=== PATIENT | female | born 1960 | race Caucasian/White ===

== ENCOUNTER 2024-01-14 02:19 | Emergency (ER) | payer OTHER, SELFPAY ==
[2024-01-14 02:27] VITALS: BP 140/79; PULSE 58; RESP 16; TEMP 36.6; O2SAT 98; BMI 25.7
--- NOTE | 2024-01-14 02:36 | ED.GENADULT ---
HPI - General Adult General Chief complaint: Urogenital Problems, Female Stated complaint: poss UTI, blood in urine Time Seen by Provider: 01/14/24 02:36 History of Present Illness HPI narrative: pt states she thinks she has a UTI, started having increased frequency and burning with urination this evening. Also states she had intercourse this am, noticed some blood when she wiped tonight. Denies fever or chills 63-year-old woman presenting to the emergency department with concern of possible urinary tract infection. She started is noted increased lower abdominal pressure beginning this last evening while relaxing on the couch. Has had dysuria and frequency since. Did have intercourse this last morning and has noted some blood upon wiping with urination. No fever. No chills. No back pain. No unusual discharge otherwise. Review of records shows pansensitive E coli collected in urine culture on May 2022. Related Data Previous Rx's Medication Instructions Recorded fluconazole 150 mg tablet 150 mg PO Q3D 2 doses #2 tabs 05/13/22 (Diflucan) Allergies Allergy/AdvReac Type Severity Reaction Status Date / Time nitrofurantoin AdvReac Intermediate Muscle Pain Verified 05/13/22 09:36 [From Macrobid] [facility] Medical History (Updated 01/14/24 @ 03:37 by Jorge Escudero MD) Yeast infection ?B37.9 - Candidiasis, unspecified (ICD-10) Urinary tract infection ?N39.0 - Urinary tract infection, site not specified (ICD-10) Social History Smoking Status: Never smoker Exam Narrative: Exam Narrative: Pleasant. Here with supportive partner. Prefers to stand for comfort. Restless in apparent discomfort. She is breathing easily. Skin is warm and dry. There is no flank pain. Abdomen is soft and little uncomfortable in the suprapubic area. Without peritoneal signs. Lungs appear to be clear. Heart is in regular to near bradycardic rate. Const: Vital Signs, click to edit/add: Vital Signs - 24 hr 01/14/24 02:27 Temperature 97.8 F Pulse Rate [Pulse Oximeter] 58 L Respiratory Rate 16 Blood Pressure [Le ft Upper Arm] 140/79 H Pulse Oximetry 98 Oxygen Delivery Me thod Room Air Documenting provider has reviewed patient's vital signs: yes Course Vital Signs Vital signs: Initial Vital Signs Temperature 97.8 F 01/14/24 02:27 Temperature Source Temporal Artery Scan 01/14/24 02:27 Pulse Rate 58 L 01/14/24 02:27 Pulse Rhythm Regular 01/14/24 02:27 Respiratory Rate 16 01/14/24 02:27 Blood Pressure 140/79 H 01/14/24 02:27 Blood Pressure Mean 99 01/14/24 02:27 Blood Pressure Position Supine 01/14/24 02:27 Pulse Oximetry 98 01/14/24 02:27 Oxygen Delivery Method Room Air 01/14/24 02:27 Vital Signs Temperature 97.8 F 01/14/24 02:27 Pulse Rate 58 L 01/14/24 02:27 Respiratory Rate 16 01/14/24 02:27 Blood Pressure 140/79 H 01/14/24 02:27 Pulse Oximetry 98 01/14/24 02:27 Oxygen Delivery Method Room Air 01/14/24 02:27 Temperature 97.8 F 01/14/24 02:27 Pulse Rate 58 L 01/14/24 02:27 Respiratory Rate 16 01/14/24 02:27 Blood Pressure 140/79 H 01/14/24 02:27 Pulse Oximetry 98 01/14/24 02:27 Oxygen Delivery Method Room Air 01/14/24 02:27 Medical Decision Making MDM Narrative Medical decision making narrative: Cystitis does appear to be most likely answer for her symptoms. Possible ureteral stone. We agreed to wait for further evaluation pending results of urinalysis. Urinalysis indeed does appear to be infected. She is relieved to be receiving antibiotics and phenazopyridine. See patient discharge plan for further discussion. Lab Data Lab results reviewed: Yes I reviewed the patient's lab results Labs: Lab Results 01/14/24 Range/Units 02:35 Urine Color Yellow (Yellow) Urine Appearance Cloudy A (Clear) Urine pH 6.5 (5.0-8.5) Ur Specific [place] 1.010 (1.000-1.030) Urine Protein 2+ A (Negative) Urine Glucose (UA) Negative (Negative) Urine Ketones Negative (Negative) Urine Blood 3+ A (Negative) Urine Nitrite Negative (Negative) Urine Bilirubin Negative (Negative) Urine Urobilinogen 0.2 (0.2-1.0) Ur Leukocyte Esterase 2+ A (Negative) Urine RBC 25-50 A (0-2) Urine WBC 10-25 A (0-5) Ur Squamous Epith Cells Moderate A (None-Few) Urine Bacteria Few A (None) Discharge Plan Discharge Clinical Impression: Dysuria, Cystitis Patient Disposition: Home w/ Parent or Adult Condition: Stable Additional Instructions: Focus on unsugared/unsweetened hydration over the next few days. A urine culture will be pending here and we will call you if change in medication is necessary. Return for marked increase in persistent pain, repeated vomiting, associated fever. Cephalexin and phenazopyridine (contrary to [facility] directions can take 1/2 - 1 tablet per dose) from [facility]. Prescriptions: No Action fluconazole [Diflucan] 150 mg tablet 150 mg PO Q3D Qty: 2 0RF Rx Instructions: Take one tab po once if develop vaginal itch; repeat in 3 days if persists Follow Up/Referrals: Mili Palacio MD [Staff Physician] - Stand Alone Forms: [employer] Info Instructions
[2024-01-14 02:38] LABS: Appearance Urine Cloudy (Clear); Bilirubin Urine Negative (Negative); Blood Urine 3+ (Negative); Color Urine Yellow (Yellow); Glucose Urine Negative (Negative); Ketones Urine Negative (Negative); Leukocyte Esterase Urine 2+ (Negative); Nitrite Urine Negative (Negative); Protein Urine 2+ (Negative); Urobilinogen Urine 0.2 (0.2-1.0); pH Urine 6.5 (5.0-8.5)
[2024-01-14 02:46] LABS: RBC Urine 25-50 (0-2); Squamous Epithelial Cell Urine Moderate (None-Few)
[2024-01-14 02:47] LABS: Bacteria Urine Few
== END 2024-01-14 03:56 | disposition home or self-care (01) ==
PROVIDERS: Emergency Provider Family Medicine; PCP Family Medicine
DX: R30.0 Dysuria (principal); N30.90 Cystitis, unspecified without hematuria
CPT/HCPCS: 81001; 87077; 87086; 87186; 99283; 99284

== ENCOUNTER 2024-01-27 16:29 | Outpatient (CLI) | payer OTHER, SELFPAY | END 2024-01-27 16:30 | disposition home or self-care (01) | LOC: NFLDREF 01-29 11:13 | PROVIDERS: PCP Family Medicine; Referring Provider Family Medicine; Visit Provider Nurse Practitioner | DX: R10.9 Unspecified abdominal pain (principal) | CPT/HCPCS: 87086 ==

== ENCOUNTER 2024-05-04 12:56 | Outpatient (CLI) | payer OTHER, SELFPAY ==
--- OUTSIDE RECORDS SUMMARY | 2024-05-04 12:59 | XMS_ITS | Clinical Summary ---
Author Organization [facility] Address [address] [place] [address] Care Team Providers Care Wafer Production Lead Worker Name Role Phone Needs Pcp, Assignment Primary Care Provider [phone] Source Comments You are receiving this document as you are listed as the primary care provider,follow-up provider, or the patient has been referred to you for consultation.This is in compliance with the Medicare and[facility] E[facility] Incentive Program,which states Providers who transition their patient to another setting of careor provider of care or refers their patient to another provider of care shouldprovide summary care record for each transition of care or referral. [employer] Allergies Active Allergy Reactions Criticality Noted Date Comments Latex 01/09/2011 PN: Converted from LW Latex Sensitivity Flag Medications Medication Sig Dispensed Refills Start Date End Date Status unknown medication Indications: PN: 07/15/2009 Active unknown medication Indications: PN: 12/15/2009 Active cyclobenzaprine (AKA FLEXERIL) 10 MG tablet Take 0.5-1 tablets by mouth 3 times daily as needed. LW Comment:Rx PRIORITY: Pt in Clinic LW Addl Instr:For muscle pain and spasm, will make drowsy. 21 12/15/2009 Active Active Problems No known active problems Social History Tobacco Use Types Packs/Day Years Used Date Smoking Tobacco: Never Sex and Gender Information Value Date Recorded Sex Assigned at Not on file Gender Identity Not on file Sexual Orientation Not on file Last Filed Vital Signs Vital Sign Reading Time Taken Comments Blood Pressure 111/71 12/17/2016 11:51 AM CDT Pulse 56 12/17/2016 11:51 AM CDT Temperature 35.7 ??C (96.3 ??F) 12/17/2016 11:51 AM C DT Respiratory Rate 16 12/17/2016 11:51 AM CDT Oxygen Saturation 97% 08/13/2008 8:32 AM MACHINE OPERATOR HELPER Inhaled Oxygen Concentration - - Weight - - Height - - Body Mass Index - - Plan of Treatment Health Maintenance Due Date Last Done Comments Cervical Cancer Screening Due 1961 Colon Cancer Screening Plan Due 1961 Hep C Screening (Preventive Services) 1961 Mammogram 1961 HIV Screening (Preventive Services) 1977 Adult Preventive Visit 1979 Cholesterol 2006 Zoster/Shingles (1 of 2) 2011 DTaP/Tdap/Td (2 - Tdap) 04/22/2022 04/22/2012 COVID-19 Vaccine (1 - 2022-2 4 season) 2023 Influenza (#1) 2024 HepA Aged Out 04/22/2012 No longer eligi ble based on patient's age to complete this topic HepB Aged Out No longer eligi ble based on patient's age to complete this topic Hib Aged Out No longer eligi ble based on patient's age to complete this topic IPV (Polio) Aged Out No longer eligi ble based on patient's age to complete this topic MCV4 Aged Out No longer eligi ble based on patient's age to complete this topic Pneumococcal Aged Out No longer eligi ble based on patient's age to complete this topic Care Teams Wafer Production Lead Worker Relationship Specialty Start Date End Date Needs Pcp, Bernabe [place] [address] PCP - General 12/17/16
--- OUTSIDE RECORDS SUMMARY | 2024-05-04 12:59 | XMS_ITS | Referral Summary ---
Author Organization [facility] Address [address] [place] [address] Care Team Providers Care Digital Artist Name Role Phone Unavailable Primary Care Provider Unavailabl e Allergies No known active allergies Medications Medication Sig Dispensed Refills Start Date End Date Status azithromycin (ZITHROMAX) 250 MG tabletIndications:Acut e bronchitis, unspecified organism Two tablets first day, then one tablet daily for four days. 6 tablet 0 12/03/2015 Active guaiFENesin-codeine (ROBITUSSIN AC) 100-10 MG/5ML SOLNIndications:Acute bronchitis, unspecified organism Take 5-10 mLs by mouth every 4 hours as needed for cough 120 mL 0 12/03/2015 Active Active Problems Problem Noted Date Diagnosed Date CARDIOVASCULAR SCREENING; LDL GOAL LESS THAN 130 Immunizations Name Administration Dates Next Due TDAP Vaccine (Boostrix) 04/22/2012 Twinrix A/B 04/22/2012 Social History Tobacco Use Types Packs/Day Years Used Date Smoking Tobacco: Never Alcohol Use Standard Drinks/Week Comments No 0 (1 standard drink = 0.6 oz pur e alcohol) Adolescent Education Answer Date Record ed Getting School Help Needed Not on file 07/13 Sex and Gender Information Value Date Recorded Sex Assigned at Not on file Gender Identity Not on file Sexual Orientation Not on file Last Filed Vital Signs Vital Sign Reading Time Taken Comments Blood Pressure 118/62 12/03/2015 11:34 AM VP ANCILLARY Pulse 89 12/03/2015 11:34 AM VP ANCILLARY Temperature 37.1 ??C (98.7 ??F) 12/03/2015 11:[address] Respiratory Rate 14 04/22/2012 2:06 PM CDT Oxygen Saturation 96% 12/03/2015 11:34 AM VP ANCILLARY Inhaled Oxygen Concentration - - Weight 69.9 kg (154 lb) 12/03/2015 11:34 AM VP ANCILLARY Height 162.6 cm (5' 4) 12/03/2015 11:34 AM VP ANCILLARY Body Mass Index 26.43 12/03/2015 11:34 AM VP ANCILLARY Plan of Treatment Not on file
--- OUTSIDE RECORDS SUMMARY | 2024-05-04 12:59 | XMS_ITS | Encounter Summary ---
Author Organization [facility] Address [address] [place] [address] Care Team Providers Care Probation And Parole Officer Name Role Phone Yadiel Rodriguez MD Primary Care Provider [phone] None Primary Care Provider Unavailabl e Jinny Roberto APRN SAP PORTAL CONSULTANT Unavailable Unava ilable Guy Flores MD Unavailable Jinny Roberto APRN SAP PORTAL CONSULTANT Unavailable Unava ilable Reason for Visit * Reason Onset Date Comments Outreach 11/30/2016 PHS att 1 Outreach 03/20/2017 [facility] att 2 Encounter Details Date Type Department Care Team (Late st Contact Info) Description 11/30/[address] [phone] Yadiel Rodriguez MD [address] [place] [address] Outreach ([facility] att 1); Outreach (PHS att 2) Social History Tobacco Use Types Packs/Day Years Used Date Smoking Tobacco: Never Alcohol Use Standard Drinks/Week Comments No 0 (1 standard drink = 0.6 oz pur e alcohol) Sex and Gender Information Value Date Recorded Sex Assigned at Not on file Gender Identity Not on file Sexual Orientation Not on file documented as of this encounter Miscellaneous Notes * Telephone Encounter - Ann Marie Jean - 03/20/2017 10:10 AM CDT 03/20/2017 Call Regarding Preventive Health Screening Mammogram and Physical Attempt 2 Message on voicemail Comments: Outreach Pesticide Chemist JOE * Telephone Encounter - Bryson Whitfield - 11/30/2016 11:40 AM CST 11/30/2016 Call Regarding Preventive Health Screening Mammogram and Physical Attempt 1 Message on voicemail Comments: Outreach Pesticide Chemist rbg MARKER documented in this encounter Plan of Treatment Not on file documented as of this encounter Visit Diagnoses Not on filedocumented in this encounter Care Teams Probation And Parole Officer Relationship Specialty Start Date End Date Yadiel Rodriguez MD [address] [place] [id number] PCP - General 11/21/01 05/20/17 None PCP - General 05/21/17 06/06/17 Jinny Roberto APRN SAP PORTAL CONSULTANT NO INFO AVAILABLE 12/03/2022 PCP - Assigned PCP 08/17/18 12/09/18 Guy Flores MD [address] [place] [address] PCP - Assigned PCP 08/03/18 08/16/18 Jinny Roberto APRN SAP PORTAL CONSULTANT NO INFO AVAILABLE 12/03/2022 Assigned PCP 08/17/18 12/06/18 documented as of this encounter
--- OUTSIDE RECORDS SUMMARY | 2024-05-04 12:59 | XMS_ITS | Clinical Summary ---
Author Organization [facility] Address [address] [place] [address] Care Team Providers Care Oracle Ascp Consultant Name Role Phone Unavailable Primary Care Provider [...] TDAP Vaccine (Boostrix) 04/22/2012 Twinrix A/B 04/22/2012 Family History Medical History Relation Comments Heart Failure Father Hypertension Father Prostate Cancer Father Blood Disease Maternal Grandfather Anemia Breast Cancer Maternal Grandmother Cancer Paternal Grandfather lung Relation Status Comments Father Maternal Grandfather Maternal Grandmother Mother Alive Paternal Grandfather Social History Tobacco Use Types Packs/Day Years [...] Comments Blood Pressure 118/62 12/03/2015 11:34 AM WOODEN BOX MAKER Pulse 89 12/03/2015 11:34 AM WOODEN BOX MAKER Temperature 37.1 ??C (98.7 ??F) 12/03/2015 11:[address] Respiratory Rate 14 04/22/2012 2:06 PM CDT Oxygen Saturation 96% 12/03/2015 11:34 AM WOODEN BOX MAKER Inhaled Oxygen Concentration - - Weight 69.9 kg (154 lb) 12/03/2015 11:34 AM WOODEN BOX MAKER Height 162.6 cm (5' 4) 12/03/2015 11:34 AM WOODEN BOX MAKER Body Mass Index 26.43 12/03/2015 11:34 AM WOODEN BOX MAKER Plan of Treatment Not on file
--- NOTE | 2024-05-04 13:00 | CRLHL7_ITS ---
For Patients: As a result of the Century Cures Act, medical imaging exams and procedure reports are released immediately into your electronic medical record. You may view this report before your referring provider. If you have questions, please contact your health care provider. BILATERAL SCREENING MAMMOGRAM WITH COMPUTER-AIDED DETECTION AND TOMOSYNTHESIS TECHNIQUE: CC and MLO views were obtained. These mammographic images have been obtained using full-field digital technique. These mammographic images were interpreted with the benefit of computer-aided detection. Breast Tomosynthesis was used in this interpretation. COMPARISON FILM: 04/12/21, 09/29/19, 05/21/17. FINDINGS: The breasts are heterogeneously dense, which may obscure small masses IMPRESSION: There is no radiographic evidence for malignancy. ASSESSMENT: BI-RADS Category 1: Negative RECOMMENDATION: Routine screening mammogram in 1 year. A lay language report of this examination will be provided to the patient. Jorge Amor M.D. Diagnostic Radiologist [email or web address] [email or web address]/[email or web address] Transcribed: 2:11 p.gale rodriguez/Dictated by: Jorge Amor MD @ 05/05/2024 9:53:00 AM (Electronically Signed)
--- OUTSIDE RECORDS SUMMARY | 2024-05-04 13:00 | XMS_ITS | Clinical Summary ---
Author Organization [facility] Address [place], [place] [address] Care Team Providers Care Muffler Mechanic Name Role Phone Pcp, No Primary Care Provider Unavailabl e Allergies No known active allergies Medications No known medications Active Problems No known active problems Family History Medical History Relation Name Comments Cancer Father Good Health Mother Relation Name Status Comments Father Mother Alive Social History Tobacco Use Types Packs/Day Years Used Date Smoking Tobacco: Never Smokeless Tobacco: Never Alcohol Use Standard Drinks/Week Comments No 0 (1 standard drink = 0.6 oz pur e alcohol) Social Connections Answer Date Recorded Frequency of Communication with Friends and Fami ly Not on file 10/11/2021 Financial Resource Strain Answer Date R ecorded Difficulty of Paying Living Expenses Not on file 10/11/2021 Difficulty of Paying Living Expenses Not on file 10/11/2021 Sex and Gender Information Value Date Recorded Sex Assigned at Not on file Gender Identity Not on file Sexual Orientation Not on file Obstetrics History Last Filed Vital Signs Vital Sign Reading Time Taken Comments Blood Pressure 106/68 10/11/2021 7:44 AM BROADCAST CHIEF ENGINEER Pulse 67 10/11/2021 7:44 AM BROADCAST CHIEF ENGINEER Temperature 36.8 ??C (98.3 ??F) 10/11/2021 7:44 AM CS T Respiratory Rate 16 04/10/2016 12:05 PM CDT Oxygen Saturation 99% 10/11/2021 7:44 AM BROADCAST CHIEF ENGINEER Inhaled Oxygen Concentration - - Weight 73.5 kg (162 lb) 10/11/2021 7:44 AM BROADCAST CHIEF ENGINEER Height 163.8 cm (5' 4.5) 10/11/2021 7:44 AM BROADCAST CHIEF ENGINEER Body Mass Index 27.38 10/11/2021 7:44 AM BROADCAST CHIEF ENGINEER Plan of Treatment Health Maintenance Due Date Last Done Comments Tdap 1972 Depression screening for age 12+ 1973 HIV for age 15-65 1976 Hepatitis C screening for ag e 18-79 1979 Tetanus booster 1981 Pap test for age 21-65 1982 Colonoscopy through age 75 2006 Lipids for age 45-75 2006 Mammogram for age 45-75 2006 Zoster (shingles) series for age 50+ (1 of 2) 2011 BMI (ht and wt on same day) for age 18+ 10/11/2022 10/11/2021, 04/10/2016 COVID-19 vaccine series (2022- season) 2023 Influenza for age 50-64 06/07/2024 Pneumococcal series for age 6-64 Aged Out No longer eligible b ased on patient's age to complete this topic Care Teams Muffler Mechanic Relationship Specialty Start Date End Date Pcp, No . PCP - General 06/12/11
== END 2024-05-04 12:57 | disposition home or self-care (01) ==
LOC: MAMMO 12:57
PROVIDERS: PCP Family Medicine; Visit Provider Family Medicine
DX: Z12.31 Encounter for screening mammogram for malignant neoplasm of breast (principal); R92.2 Inconclusive mammogram
CPT/HCPCS: 77063; 77067

== ENCOUNTER 2024-09-02 14:54 | Outpatient (CLI) | payer OTHER, SELFPAY ==
--- OUTSIDE RECORDS SUMMARY | 2024-09-04 12:50 | XMS_ITS | Clinical Summary ---
Author Organization [facility] Address [address] [place] [address] Care Team Providers Care Towel Stretcher Name Role Phone Needs Pcp, Assignment Primary Care Provider [phone] Source Comments You are receiving this document as you are listed as the primary care provider,follow-up provider, or the patient has been referred to you for consultation.This is in compliance with the Medicare and[facility] E[facility] Incentive Program,which states Providers who transition their patient to another setting of careor provider of care or refers their patient to another provider of care shouldprovide summary care record for each transition of care or referral. [employer] Allergies Active Allergy Reactions Criticality Noted Date [...] 56 12/17/2016 11:51 AM CDT Temperature 35.7 C (96.3 F) 12/17/2016 11:51 AM CDT Respiratory Rate 16 12/17/2016 11:51 AM CDT Oxygen Saturation 97% 08/13/2008 8:32 AM CABBAGE SALTER Inhaled Oxygen Concentration - - Weight - [...] (2 - Tdap) 04/22/2022 04/22/2012 COVID-19 Vaccine ( - 2023-2 5 season) 2024 Influenza (#1) 2024 RSV (1 - 1-dose 75+ series) 2036 HepA Aged Out 04/22/2012 No longer eligi ble based on patient's age to complete this topic HepB Aged Out No longer eligi ble based on patient's age to complete this topic Hib Aged Out No longer eligi ble based on patient's age to complete this topic IPV (Polio) Aged Out No longer eligi ble based on patient's age to complete this topic Infant RSV Aged Out No longer eligi ble based on patient's age to complete this topic MCV4 Aged Out No longer eligi ble based on patient's age to complete this topic Pneumococcal Aged Out No longer eligi ble based on patient's age to complete this topic Care Teams Towel Stretcher Relationship Specialty Start Date End Date Needs Pcp, [place], [place] [id number] PCP - General 12/17/16
--- OUTSIDE RECORDS SUMMARY | 2024-09-04 12:50 | XMS_ITS | Referral Summary ---
Author Organization [facility] Address [address] [place] [address] Care Team Providers Care Revit Drafter Name Role Phone Unavailable Primary Care Provider Unavailabl e Allergies No known active allergies Medications azithromycin (ZITHROMAX) 250 MG tabletIndication s:Acute bronchitis, unspecified organism Two tablets first day, then one tablet daily for four days. 6 tablet 0 12/03/2015 Active guaiFENesin-code ine (ROBITUSSIN AC) 100-10 MG/5ML SOLNIndications: Acute bronchitis, unspecified organism Take 5-10 mLs by [...] School Help Needed Not on file 07/13 Comments No Sex and Gender Information Value Date Recorded Sex Assigned at Not on file Legal Sex Female 3:08 AM CONGRESSIONAL ASSISTANT Gender Identity Not on file Sexual Orientation Not on file Last Filed Vital Signs Vital Sign Reading Time Taken Comments Blood Pressure 118/62 12/03/2015 11:34 AM CONGRESSIONAL ASSISTANT Pulse 89 12/03/2015 11:34 AM CONGRESSIONAL ASSISTANT Temperature 37.1 C (98.7 F) 12/03/2015 11:34 AM CONGRESSIONAL ASSISTANT Respiratory Rate 14 04/22/2012 2:06 PM CDT Oxygen Saturation 96% 12/03/2015 11:34 AM CONGRESSIONAL ASSISTANT Inhaled Oxygen Concentration - - Weight 69.9 kg (154 lb) 12/03/2015 11:34 AM CONGRESSIONAL ASSISTANT Height 162.6 cm (5' 4) 12/03/2015 11:34 AM CONGRESSIONAL ASSISTANT Body Mass Index 26.43 12/03/2015 11:34 AM CONGRESSIONAL ASSISTANT Plan of Treatment Not on file
--- OUTSIDE RECORDS SUMMARY | 2024-09-04 12:50 | XMS_ITS | Clinical Summary ---
Author Organization [facility] Address [address] [place] [address] Care Team Providers Care Active Directory Specialist Name Role Phone Unavailable Primary Care Provider [...] on file Legal Sex Female 3:08 AM JUNIOR HIGH SCHOOL PRINCIPAL Gender Identity Not on file Sexual Orientation Not on file Last Filed Vital Signs Vital Sign Reading Time Taken Comments Blood Pressure 118/62 12/03/2015 11:34 AM JUNIOR HIGH SCHOOL PRINCIPAL Pulse 89 12/03/2015 11:34 AM JUNIOR HIGH SCHOOL PRINCIPAL Temperature 37.1 C (98.7 F) 12/03/2015 11:34 AM JUNIOR HIGH SCHOOL PRINCIPAL Respiratory Rate 14 04/22/2012 2:06 PM CDT Oxygen Saturation 96% 12/03/2015 11:34 AM JUNIOR HIGH SCHOOL PRINCIPAL Inhaled Oxygen Concentration - - Weight 69.9 kg (154 lb) 12/03/2015 11:34 AM JUNIOR HIGH SCHOOL PRINCIPAL Height 162.6 cm (5' 4) 12/03/2015 11:34 AM JUNIOR HIGH SCHOOL PRINCIPAL Body Mass Index 26.43 12/03/2015 11:34 AM JUNIOR HIGH SCHOOL PRINCIPAL Plan of Treatment Not on file
--- OUTSIDE RECORDS SUMMARY | 2024-09-04 12:50 | XMS_ITS | Encounter Summary ---
Author Organization [facility] Address [address] [facility] [place] [address] Care Team Providers Care Rn Mobile Name Role Phone Yadiel Rodriguez MD Primary Care Provider [phone] None Primary Care Provider Unavailabl e Jinny Roberto APRN DNA ANALYST Unavailable Unava ilable Guy Flores MD Unavailable Jinny Roberto APRN DNA ANALYST Unavailable Unava ilable Reason for Visit * Reason Onset Date Comments Outreach 11/30/2016 [facility] att 1 Outreach 03/20/2017 [facility] att 2 Encounter Details Date Type Department Care Team (Late st Contact Info) Description 11/30/[address] [phone] Yadiel Rodriguez MD [address] [place] [address] Outreach ([facility] att 1); Outreach ([facility] att 2) Social History Tobacco Use Types Packs/Day Years Used Date Smoking Tobacco: Never Alcohol Use Standard Drinks/Week Comments No 0 (1 standard drink = 0.6 oz pur e alcohol) Comments No Sex and Gender Information Value Date Recorded Sex Assigned at Not on file Legal Sex Female 3:08 AM CAREGIVERS NON MEDICAL Gender Identity Not on file Sexual Orientation Not on file documented as of this encounter Miscellaneous Notes * Telephone Encounter - Ann Marie Jean - 03/20/2017 10:10 AM CDT 03/20/2017 Call Regarding Preventive Health Screening Mammogram and Physical Attempt 2 Message on voicemail Comments: Outreach Blood Bank Order Control Clerk JOE * Telephone Encounter - Nahid Bryson - 11/30/2016 11:40 AM CST 11/30/2016 Call Regarding Preventive Health Screening Mammogram and Physical Attempt 1 Message on voicemail Comments: Outreach Blood Bank Order Control Clerk rbg GIVERS NON MEDICAL documented in this encounter Plan of Treatment Not on file documented as of this encounter Visit Diagnoses Not on filedocumented in this encounter Care Teams Rn Mobile Relationship Specialty Start Date End Date Yadiel Rodriguez MD [address] [place] [address] PCP - General 11/21/01 05/20/17 None PCP - General 05/21/17 06/06/17 Jinny Roberto APRN DNA ANALYST NO INFO AVAILABLE 12/03/2022 PCP - Assigned PCP 08/17/18 12/09/18 Guy Flores MD [address] [place] [address] PCP - Assigned PCP 08/03/18 08/16/18 Jinny Roberto APRN DNA ANALYST NO INFO AVAILABLE 12/03/2022 Assigned PCP 08/17/18 12/06/18 documented as of this encounter
--- OUTSIDE RECORDS SUMMARY | 2024-09-04 12:50 | XMS_ITS | Clinical Summary ---
Author Organization [facility] Address [place], [place] [address] Care Team Providers Care X Ray Developer Name Role Phone Pcp, No Primary Care [...] Comments Blood Pressure 106/68 10/11/2021 7:44 AM SURGICAL TECHNOLOGY INSTRUCTOR Pulse 67 10/11/2021 7:44 AM SURGICAL TECHNOLOGY INSTRUCTOR Temperature 36.8 C (98.3 F) 10/11/2021 7:44 AM SURGICAL TECHNOLOGY INSTRUCTOR Respiratory Rate 16 04/10/2016 12:05 PM CDT Oxygen Saturation 99% 10/11/2021 7:44 AM SURGICAL TECHNOLOGY INSTRUCTOR Inhaled Oxygen Concentration - - Weight 73.5 kg (162 lb) 10/11/2021 7:44 AM SURGICAL TECHNOLOGY INSTRUCTOR Height 163.8 cm (5' 4.5) 10/11/2021 7:44 AM SURGICAL TECHNOLOGY INSTRUCTOR Body Mass Index 27.38 10/11/2021 7:44 AM SURGICAL TECHNOLOGY INSTRUCTOR Plan of Treatment Health Maintenance Due Date [...] 18+ 10/11/2022 10/11/2021, 04/10/2016 COVID-19 vaccine series (2023-25 season) 2024 Influenza for age 50-64 06/07/2024 Pneumococcal series for age 6-64 Aged Out No longer eligible b ased on patient's age to complete this topic Care Teams X Ray Developer Relationship Specialty Start Date End Date Pcp, No . PCP - General 06/12/11
== END 2024-09-02 14:55 | disposition home or self-care (01) ==
PROVIDERS: PCP Family Medicine; Referring Provider Family Medicine; Visit Provider Family Medicine
DX: N30.00 Acute cystitis without hematuria (principal); N39.0 Urinary tract infection, site not specified
CPT/HCPCS: 87086; 87186